=== PATIENT | female | born 1980 | race Caucasian/White ===

== ENCOUNTER 2018-11-11 14:09 | Emergency (ER) | payer MEDICAID ==
[~2018-11-11] VITALS: Wt 113.6 kg
[~2018-11-11 14:09] MED LIST: EMTR1TAB11 PO; ISEN400 PO; ONDA4TAB14 PO
[2018-11-11] MEDS ORDERED: ONDANSETRON (ODT) 4 MG TAB ODT STA (20:42)
[2018-11-11] MEDS ORDERED: EMTRICITABINE/TENOFOVIR TAB PO ONE (21:00)
[2018-11-11] MEDS ORDERED: RALTEGRAVIR 400 MG TAB PO ONE ×2 (21:00)
[2018-11-11 21:25] VITALS: BP 122/70; PULSE 77; RESP 20
== END 2018-11-11 21:26 | disposition home or self-care (01) ==
LOC: FTE 14:09
DX: T74.21XA Adult sexual abuse, confirmed, initial encounter (principal)
CPT/HCPCS: 80076; 85025; 86703; 86706; 86803; 87340; Z7502; Z7610; 99283